=== PATIENT | male | born 1950 | race Caucasian/White ===

== ENCOUNTER → 2025-03-06 | Outpatient (CLI) | payer MEDICARE ==
[~2025-03-06] MED LIST: ATOR1TAB19 PO; LISI40TA4 PO; METF10004 PO
== END ==
LOC: M RAD 09:36 → EDUNIT# 12:30
PROVIDERS: ATTEND Ophthalmology
DX: H40.1131 Primary open-angle glaucoma, bilateral, mild stage (principal); H53.2 Diplopia